=== PATIENT | female | born 1955 | race Caucasian/White ===

== ENCOUNTER → 2020-09-26 | Day surgery (SDC) | payer OTHER, BC ==
[2020-09-22 14:46] VITALS: BMI 43.5
[~2020-09-26] MED LIST: LACTATED RINGERS SOLUTION 1,000 ML IV SCH; ONDANSETRON 4 MG/2 ML VIAL IVPUSH PRN; PROMETHAZINE HCL 25 MG/1 ML VIAL IVPUSH PRN; ceFAZolin SODIUM 1 GM VIAL IVPB ONE; oxyCODONE HCL 5 MG TABLET PO PRN
[2020-09-26 14:03] VITALS: BP 114/68; PULSE 86; TEMP 98.2
== END | disposition home or self-care (01) ==
LOC: JASU-SURG 06:00
PROVIDERS: ATTEND Obstetrics & Gynecology
PROC: 0UDB7ZX Extraction of Endometrium, Via Natural or Artificial Opening, Diagnostic (ICD-10-PCS; principal; 2020-09-26 09:30)
PROC: 0UJD8ZZ Inspection of Uterus and Cervix, Via Natural or Artificial Opening Endoscopic (ICD-10-PCS; 2020-09-26 09:30)
DX: N85.8 Other specified noninflammatory disorders of uterus (principal)
CPT/HCPCS: 86850; 86900; 86901; 88305-TC; 94760

== ENCOUNTER 2024-06-28 08:51 | Emergency (ER) | payer OTHER, BC ==
[2024-06-28 08:59] VITALS: BMI 44.2
[2024-06-28 10:37] LABS: INR 1.08 (0.83-1.09); PROTHROMBIN TIME (PATIENT) 12.2 SEC (9.7-13.0)
[2024-06-28 10:37] LABS: BASO % 1.3 % (0-2.0); EOS % 3.4 % (0-4.5); HEMOGLOBIN 11.8 GM/dL (10.7-15.3); LYMPH % 18.6 % (8-40); MCH 30.3 pg (25.7-33.7); MCHC 32.7 g/dl (32.0-36.0); MEAN CELL VOLUME 92.7 fl (80-96); MEAN PLT VOLUME 8.2 fl (7.5-11.1); MONO % 12.3 % (3.8-10.2); NEUT % 64.4 % (42.8-82.8); PLATELET COUNT 263 10^3/uL (134-434); RBC 3.88 M/mm3 (3.60-5.2); RDW 13.8 % (11.6-15.6); WHITE BLOOD COUNT 6.5 K/mm3 (4.0-10.0)
[2024-06-28 10:39] LABS: ACTIVATED PTT 32.2 SECONDS (25.2-36.5)
[2024-06-28] MEDS: ACETAMINOPHEN 1000 MG/100 ML BAG IVPB ONE (10:48)
[2024-06-28] MEDS ORDERED: ACETAMINOPHEN 325 MG TABLET (FP) ONE (11:02)
[2024-06-28] MEDS: ACETAMINOPHEN 325 MG TABLET (FP) PO ONE (11:08)
[2024-06-28 11:27] LABS: CALCIUM 9.6 mg/dL (8.5-10.1)
[2024-06-28 11:28] LABS: ALBUMIN 3.8 g/dl (3.4-5.0); BLOOD UREA NITROGEN 20.9 mg/dL (7-18)
[2024-06-28 11:31] LABS: CREATININE 0.9 mg/dL (0.55-1.3)
[2024-06-28 11:32] LABS: BILIRUBIN,TOTAL 0.7 mg/dL (0.2-1); TOT PROT 7.1 g/dl (6.4-8.2)
[2024-06-28 12:11] VITALS: BP 130/73; PULSE 66; RESP 17; TEMP 97.8
== END 2024-06-28 12:10 | disposition home or self-care (01) ==
LOC: JER 08:51
DX: I80.02 Phlebitis and thrombophlebitis of superficial vessels of left lower extremity (principal)
CPT/HCPCS: 36415; 80053; 85025; 85610; 85730; 93971-TC; 99284-25